=== PATIENT | male | born 1985 | race Two or more races ===

== ENCOUNTER 2016-12-25 06:02 | Emergency (ER) | payer SELFPAY ==
[~2016-12-25] VITALS: Ht 182.9 cm; Wt 86.2 kg
[2016-12-25 06:06] VITALS: BP 134/73
[2016-12-25] MEDS ORDERED: IBUPROFEN 800 MG TABLET. PO ONE (06:30)
[2016-12-25 06:59] LABS: OBC FLU VALID
[2016-12-25] MEDS ORDERED: ACETAMINOPHEN 500 MG TABLET PO ONE (07:00)
--- NOTE | 2016-12-25 07:11 | ED.ADGEN ---
Past Medical History Past Medical History: No Pertinent History Past Surgical History: Tonsillectomy, Other Additional Past Surgical Histo: TM TUBES Alcohol Use: Occasionally Drug Use: None Adult General Chief Complaint Chief Complaint: GENERALIZED BODY ACHES HPI HPI Patient is a 31 year old man, no significant past no history, who presents to the emergency department with a complaint of fever, body aches, chills, nonproductive cough, sore throat, headache that began yesterday. Patient denies any sick contacts or exposures, denies history of seasonal allergies, states he was using Mucinex at home without relief. Has not taken any antipyretics prior to come to the ED. Patient is febrile with temperature 101.3 upon arrival to the emergency department. States he did feel nauseous prior to arrival in the ED but has had no vomiting, states that one episode of loose brown stool this morning. No difficulty swallowing or breathing, no chest pain or shortness of breath, no focal weakness, numbness or tingling. No recent travel, no rashes, no swelling extremities. Strep and flu swab were taken in triage. Patient works in a [employer]. Review of Systems Review of Systems Constitutional: Fevers and chills 2 days. Eyes: Denies change in visual acuity. [] HENT: Sore throat, mild nasal congestion. Respiratory: Denies shortness of breath. Cough, nonproductive. Cardiovascular: Denies chest pain or edema. [] GI: Denies abdominal pain, nausea, vomiting, bloody stools or diarrhea. [] : Denies dysuria. [] Musculoskeletal: Denies back pain or joint pain. [] Muscle aches throughout his back and arms and legs. Integument: Denies rash. [] Neurologic: Denies focal weakness or sensory changes. [] Mild frontal headache. Endocrine: Denies polyuria or polydipsia. [] Lymphatic: Denies swollen glands. [] Psychiatric: Denies depression or anxiety. [] Current Medications Current Medications Current Medications Medications (Trade) Dose Ordered Sig/Federico Start Time Stop Time Status Last Admin Dose Admin Acetaminophen (Tylenol) 1,000 mg 1X ONCE 12/25/16 07:00 12/25/16 07:01 DC 12/25/16 07:04 1,000 MG Benzonatate (Tessalon Perle) 100 mg 1X ONCE 12/25/16 07:30 12/25/16 07:30 DC 12/25/16 07:04 100 MG Ibuprofen (Motrin) 800 mg 1X ONCE 12/25/16 06:30 12/25/16 06:31 DC 12/25/16 06:24 800 MG Allergies Allergies Allergies Coded Allergies Type Severity Reaction Last Updated Verified No Known Drug Allergies 12/25/16 No Physical Exam Physical Exam Constitutional: Well developed, well nourished, no acute distress, non-toxic appearance. [] HENT: Normocephalic, atraumatic, bilateral external ears normal, oropharynx moist, no oral exudates, oropharynx is mildly injected, but no exudates visualized as stated, no lesions or other abnormalities. Patient with bilateral turbinate swelling, with white mucus and a small amount of rhinorrhea, nose normal. TMs are clear bilaterally, small cerumen.[] Eyes: PERRLA, EOMI, conjunctiva normal, no discharge. [] Neck: Normal range of motion, no tenderness, supple, no stridor. [] Cardiovascular:Heart rate regular rhythm, no murmur, S1, S2, rubs or gallops. [] Lungs & Thorax: Bilateral breath sounds clear to auscultation, no wheezing, rhonchi, rales. No chest or crepitus or tenderness. [] Abdomen: Bowel sounds normal, soft, no tenderness, no rebound, rigidity, no guarding, no masses, no pulsatile masses. [] Skin: Warm, dry, no erythema, no rash. [] Back: No tenderness, no CVA tenderness. [] Extremities: No tenderness, no cyanosis, no clubbing, ROM intact, no edema. Negative Homans sign.[] Neurologic: Alert and oriented X 3, normal motor function, normal sensory function, no focal deficits noted. [] Psychologic: Affect normal, judgement normal, mood normal. [] Current Patient Data Vital Signs Vital Signs Date Time Temp Pulse Resp B/P (MAP) Pulse Ox O2 Delivery O2 Flow Rate FiO2 12/25/16 06:06 101.3 114 18 96 Room Air 101.3 Lab Values Laboratory Tests Test 12/25/16 06:10 Influenza Type A Antigen Negative (NEGATIVE) Influenza Type B Antigen Negative (NEGATIVE) EKG EKG Patient initially mildly tachycardic, heart rate 110 bpm upon arrival in the ED. Sinus tachycardia, no ectopy. As noted by me.[] Radiology/Procedures Radiology/Procedures Not indicated.[] Course & Med Decision Making Course & Med Decision Making Pertinent Labs and Imaging studies reviewed. (See chart for details) Discussed with patient that examination is consistent with a viral syndrome. Patient received ibuprofen, acetaminophen, and a Tessalon Perle in the ED. Strep swab negative, influenza swab negative, as was obtained in triage, discussed with patient presentation consistent with a viral syndrome, supportive care for viral illness, also will need a work note, discussed the patient that he should not return to work until he is fever free without antipyretics for 24 hours, importance of pushing fluids, and concerning symptoms that prompt return to the ED. Patient voiced understanding and agreement, states he is feeling better after receiving antipyretics in the ED. Patient ambulating without difficulty, again states that he is feeling better, tolerating oral medications and fluids without issue, discharged home in stable condition with plan as above. Dragon Disclaimer Dragon Disclaimer This electronic medical record was generated, in whole or in part, using a voice recognition dictation system. Departure Impression: Primary Impression: Viral syndrome Disposition: 01 HOME, SELF-CARE Condition: IMPROVED Scripts Benzonatate (TESSALON PERLE) 100 Mg Capsule 100 MG PO PRN TID Y for COUGH, #15 CAP Prov: KENNETH TURNER DO 12/25/16 KENNETH TURNER DO Dec 25, 2016 07:11
[2016-12-25] MEDS ORDERED: BENZ100C PO (07:15)
[2016-12-25] MEDS ORDERED: BENZONATATE 100 MG CAPSULE. PO ONE (07:30)
[2016-12-25 08:24] LABS: NEGATIVE OBC STREP NEG; POSITIVE OBC STREP POS
== END 2016-12-25 07:20 | disposition home or self-care (01) ==
LOC: ER 06:02
DX: B34.9 Viral infection, unspecified (principal); Z96.22 Myringotomy tube(s) status
CPT/HCPCS: 87070; 87804; 87880; 99284